=== PATIENT | male | born 1985 | race Hispanic/Latino ===

== ENCOUNTER 2019-06-02 05:57 | Emergency (ER) | payer BC, SELFPAY ==
[2019-06-02] MEDS ORDERED: Ketorolac Tromethamine 60 MG/2 ML VIAL ONE (07:10)
--- NOTE | 2019-06-02 09:05 | RAD ---
3 VIEWS THORACIC SPINE: Date: 06/02/19 COMPARISON: None. HISTORY: Back pain that radiates to the leg for 2 views. FINDINGS: 3 views of the thoracic spine show normal height and alignment of the vertebral bodies and interverte bral discs without fracture or subluxation. No degenerative changes are seen. IMPRESSION: Unremarkable exam. POS: CET
--- NOTE | 2019-06-02 09:08 | RAD ---
LUMBAR SPINE RADIOGRAPHS 3 VIEWS: Date: 06/02/19 PROVIDED CLINICAL HISTORY: Injury. FINDINGS: Five non-rib bearing lumbar-type vertebral bodies are present. Lumbar alignment appears normal. Verte bral body heights appear preserved. Pedicles appear intact. IMPRESSION: No evidence for an acute osseous abnormality. POS: OFF
== END 2019-06-02 08:16 | disposition home or self-care (01) ==
LOC: ERS 05:57
DX: M54.14 Radiculopathy, thoracic region (principal)
CPT/HCPCS: 72070; 72100; 96372; J1885

== ENCOUNTER 2024-08-27 23:25 | Emergency (ER) | payer SELFPAY ==
[2024-08-27] MEDS ORDERED: HYDROmorphone 0.5 MG/0.5 ML SYRINGE ONE (23:43)
[2024-08-28] MEDS ORDERED: PROPOFOL 20 ML ONE (00:20)
== END 2024-08-28 02:20 | disposition home or self-care (01) ==
LOC: ERS 23:25
DX: S43.005A Unspecified dislocation of left shoulder joint, initial encounter (principal); X58.XXXA Exposure to other specified factors, initial encounter; Y93.64 Activity, baseball; Z55.6 Problems related to health literacy; Z87.891 Personal history of nicotine dependence
CPT/HCPCS: 23650; 96374; 96375; J2704